=== PATIENT | male | born 1965 | race Caucasian/White ===

== ENCOUNTER 2016-05-12 08:43 | Emergency (ER) | payer OTHER ==
[2016-05-12 08:58] VITALS: BP 138/79; PULSE 82; TEMP 98; BMI 31.0
--- NOTE | 2016-05-12 10:10 | PDOC ---
History of Present Illness - General Chief Complaint: Laceration Stated Complaint: LT FOOT INJURY Time Seen by Provider: 05/12/16 09:20 History Source: Patient Exam Limitations: No Limitations - History of Present Illness Initial Comments: 05/12/16 10:04 51 year male presents to the ED with sudden onset of bleeding from his left lower leg while taking a shower this morning. Patient states has had bleeding to this area in the past approximately 2 and half years ago which subsided after being seen in the ER. Patient states has history of varicose veins and denies any anticoagulation use including aspirin. Patient denies scab to area or striking area recently. Timing/Duration: reports: just prior to arrival Severity: Yes: mild Respiratory Risk Factors: reports: no cause identified Associated Symptoms: reports: denies symptoms, change in skin texture (with bleeding) Past History - Past Medical History Allergies/Adverse Reactions: Allergies Allergy/AdvReac Type Severity Reaction Status Date / Time No Known Allergies Allergy Verified 05/12/16 08:53 Home Medications: Ambulatory Orders NK [No Known Home Medication] 03/28/14 Other medical history: glacoma - Immunization History Immunization Up to Date: Yes (no flu) - Psycho/Social/Smoking Cessation Hx Anxiety: No Suicidal Ideation: No Smoking History: Never smoked Have you smoked in the past 12 months: No Information on smoking cessation initiated: No Hx Alcohol Use: No Drug/Substance Use Hx: No Substance Use Type: None Patient Lives Alone: No Lives with/in: spouse/SO Review of Systems - Review of Systems Able to Perform ROS?: Yes Constitutional: No: Symptoms Reported Respiratory: No: Symptoms reported Cardiac (ROS): No: Symptoms Reported ABD/GI: No: Symptoms Reported Integumentary: Yes: Other (bleeding varicose vein) Neurological: No: Symptoms reported *Physical Exam - Vital Signs Last Vital Signs Temp Pulse Resp BP Pulse Ox 98 F 82 20 138/79 97 05/12/16 08:54 05/12/16 08:54 05/12/16 08:54 05/12/16 08:54 05/12/16 08:54 - Physical Exam General Appearance: Yes: Nourished, Appropriately Dressed. No: Apparent Distress HEENT: negative: Pale Conjunctivae Vascular Pulses: Dorsalis-Pedis (R): 2+ Extremity: positive: Normal Capillary Refill. negative: Pedal Edema Integumentary: positive: Warm, Other (dried blood noted to 4 x4 guaze to lateral aspect of left distal fibula. 0.5 opened circular wound with surrounding skin intact) Neurologic: positive: Motor Strength 5/5 (ambulatory) Medical Decision Making - Medical Decision Making 05/12/16 10:26 Patient with resolved bleeding from varicose vein. Patient on no anticoagulation use. Area cleansed with peroxide placed Surgicel with Anthony dressing over area in case bleeding returns in the near future. Patient also told to remove dressing in 3 days to allow area to perform a scab otherwise return to ED if bleeding returns and is not controlled with the above interventions. *DC/Admit/Observation/Transfer Diagnosis at time of Disposition: Bleeding from varicose vein Qualifiers: Laterality: left Qualified Code(s): I83.892 - Varicose veins of left lower extremities with other complications - Discharge Dispostion Disposition: HOME Condition at time of disposition: Improved - Referrals Referrals: Antonette Garcia [Primary Care Provider] - - Patient Instructions Printed Discharge Instructions: DI for Varicose Veins, DI on Treatment of Varicose Veins of the Leg Additional Instructions: Please keep dressing clean and dry for the next 3 days. Then you may remove it. Please do not allow area to be bumped or rubbed as this may irritate area causing bleeding to return.
== END 2016-05-12 10:52 | disposition home or self-care (01) ==
LOC: JER 08:43 → JERFT 08:43 → JER 10:52
DX: I83.892 Varicose veins of left lower extremity with other complications (principal)
CPT/HCPCS: 99282-25